=== PATIENT | female | born 1970 | race Caucasian/White ===

== ENCOUNTER 2022-01-17 10:13 | Observation (INO) | payer OTHER ==
[2022-01-17] MEDS ORDERED: SODIUM CHLORIDE 0.9% 1,000 ML IV STA (10:34)
[2022-01-17] MEDS ORDERED: HYDROmorphone 1 MG/ML 1 ML SYRINGE IVP STA ×2 (10:35→12:48)
--- NOTE | 2022-01-17 10:38 | ED ---
General Adult HPI - General Chief complaint: Headache Stated complaint: Headache Time Seen by Provider: 01/17/22 10:27 Source: patient, RN notes reviewed Mode of arrival: ambulatory Limitations: no limitations - History of Present Illness Initial comments: Patient is a pleasant 51-year-old female presenting to the emergency department with concerns with headache. Onset of symptoms was over 2 weeks ago. Patient diagnosed with shingles. Patient had shingles of the right side of her scalp. Patient was started on Valtrex. Patient was then hospitalized with suspicion of viral meningitis. Patient did have lumbar puncture attempt 4 without success. Patient was on IV medication, unclear what. Patient was at [facility]. Patient was discharged to week ago. Over the past couple of days patient has had increase in headache and neck discomfort, similar to when she first went into the hospital. Patient had fever 100.3 last night. Patient states lesions from shingles have significantly improved, near resolved - Related Data Home Medications Medication Instructions Recorded Confirmed Pregabalin 100 mg PO TID 01/17/22 01/17/22 Allergies Allergy/AdvReac Type Severity Reaction Status Date / Time No Known Allergies Allergy Verified 01/17/22 11:38 Review of Systems ROS Statement: Those systems with pertinent positive or pertinent negative responses have been documented in the HPI. ROS Other: All systems not noted in ROS Statement are negative. Constitutional: Reports: as per HPI Eyes: Denies: eye pain ENT: Denies: ear pain Respiratory: Denies: cough Cardiovascular: Denies: chest pain Endocrine: Denies: fatigue Gastrointestinal: Denies: abdominal pain Genitourinary: Denies: dysuria Musculoskeletal: Denies: back pain Skin: Reports: as per HPI Neurological: Reports: headache Past Medical History Additional Past Medical History / Comment(s): Lupus History of Any Multi-Drug Resistant Organisms: None Reported Past Surgical History: Hernia Repair Smoking Status: Former smoker Past Alcohol Use History: Occasional Past Drug Use History: None Reported General Exam Limitations: no limitations General appearance: alert Head exam: Present: atraumatic Eye exam: Present: normal appearance, PERRL, EOMI Neck exam: Present: meningismus Respiratory exam: Present: normal lung sounds bilaterally Cardiovascular Exam: Present: regular rate, normal rhythm GI/Abdominal exam: Present: soft. Absent: tenderness Extremities exam: Present: normal inspection Neurological exam: Present: alert, oriented X3, CN II-XII intact. Absent: motor sensory deficit Psychiatric exam: Present: normal affect, normal mood Skin exam: Present: normal color, other (No lesions visualized in suspected area) Course Vital Signs 01/17/22 01/17/22 01/17/22 10:18 12:18 13:24 Temperature 97.9 F Pulse Rate 110 H 77 86 Respiratory 18 18 18 Rate Blood Pressure 161/88 138/84 153/87 O2 Sat by Pulse 98 98 94 L Oximetry Procedures - Lumbar Puncture Consent Obtained: verbal consent Indication for Procedure: headache Patient Position: sitting upright/leaning forward Skin Prep: Povidone-Iodine 1% Local Anesthetic Used: Lidocaine 1% Spinal Needle Gauge: 20G Complications: unable to obtain CSF Patient Tolerated Procedure: no complications Medical Decision Making - Medical Decision Making Patient only mildly improved medications. Unable to obtain CSF. Patient refuses further attempt. Dr. mejia has been paged for hospital admission. Neurology and infectious disease will be placed on consult. - Lab Data Result diagrams: 01/17/22 10:47 01/17/22 10:47 Lab Results 01/17/22 01/17/22 01/17/22 Range/Units 10:47 10:47 10:47 WBC 6.2 (3.8-10.6) k/uL RBC 4.79 (3.80-5.40) m/uL Hgb 14.3 (11.4-16.0) gm/dL Hct 43.2 (34.0-46.0) % MCV 90.2 (80.0-100.0) fL MCH 29.9 (25.0-35.0) pg MCHC 33.1 (31.0-37.0) g/dL RDW 13.4 (11.5-15.5) % Plt Count 336 (150-450) k/uL MPV 8.7 Neutrophils % 65 % Lymphocytes % 26 % Monocytes % 5 % Eosinophils % 2 % Basophils % 0 % Neutrophils # 4.0 (1.3-7.7) k/uL Lymphocytes # 1.6 (1.0-4.8) k/uL Monocytes # 0.3 (0-1.0) k/uL Eosinophils # 0.1 (0-0.7) k/uL Basophils # 0.0 (0-0.2) k/uL PT 9.7 (9.0-12.0) sec INR 0.9 (<1.2) APTT 22.2 (22.0-30.0) sec Sodium 140 (137-145) mmol/L Potassium 4.1 (3.5-5.1) mmol/L Chloride 106 (98-107) mmol/L Carbon Dioxide 24 (22-30) mmol/L Anion Gap 10 mmol/L BUN 8 (7-17) mg/dL Creatinine 0.48 L (0.52-1.04) mg/dL Est GFR (CKD-EPI)AfAm >90 (>60 ml/min/1.73 sqM) Est GFR (CKD-EPI)NonAf >90 (>60 ml/min/1.73 sqM) Glucose 122 H (74-99) mg/dL Plasma Lactic Acid Lance (0.7-2.0) mmol/L Calcium 8.8 (8.4-10.2) mg/dL Total Bilirubin 0.6 (0.2-1.3) mg/dL AST 20 (14-36) U/L ALT 17 (4-34) U/L Alkaline Phosphatase 76 (38-126) U/L Total Protein 7.1 (6.3-8.2) g/dL Albumin 4.1 (3.5-5.0) g/dL 01/17/22 Range/Units 10:47 WBC (3.8-10.6) k/uL RBC (3.80-5.40) m/uL Hgb (11.4-16.0) gm/dL Hct (34.0-46.0) % MCV (80.0-100.0) fL MCH (25.0-35.0) pg MCHC (31.0-37.0) g/dL RDW (11.5-15.5) % Plt Count (150-450) k/uL MPV Neutrophils % % Lymphocytes % % Monocytes % % Eosinophils % % Basophils % % Neutrophils # (1.3-7.7) k/uL Lymphocytes # (1.0-4.8) k/uL Monocytes # (0-1.0) k/uL Eosinophils # (0-0.7) k/uL Basophils # (0-0.2) k/uL PT (9.0-12.0) sec INR (<1.2) APTT (22.0-30.0) sec Sodium (137-145) mmol/L Potassium (3.5-5.1) mmol/L Chloride (98-107) mmol/L Carbon Dioxide (22-30) mmol/L Anion Gap mmol/L BUN (7-17) mg/dL Creatinine (0.52-1.04) mg/dL Est GFR (CKD-EPI)AfAm (>60 ml/min/1.73 sqM) Est GFR (CKD-EPI)NonAf (>60 ml/min/1.73 sqM) Glucose (74-99) mg/dL Plasma Lactic Acid Lance 1.2 (0.7-2.0) mmol/L Calcium (8.4-10.2) mg/dL Total Bilirubin (0.2-1.3) mg/dL AST (14-36) U/L ALT (4-34) U/L Alkaline Phosphatase (38-126) U/L Total Protein (6.3-8.2) g/dL Albumin (3.5-5.0) g/dL - Radiology Data Radiology results: report reviewed (CT brain reveals no acute process), image reviewed (Chest x-ray shows no acute process) Disposition Clinical Impression: Headache Disposition: ADMITTED IP TO THIS HOSP Is patient prescribed a controlled substance at d/c from ED?: No Referrals: Nadine Verdugo DO [Primary Care Provider] - 1-2 days Time of Disposition: 14:14
[2022-01-17 11:20] LABS: Basophils % (A) 0 %; Eosinophils # (A) 0.1 k/uL (0-0.7); Eosinophils % (A) 2 %; HCT 43.2 % (34.0-46.0); HGB 14.3 gm/dL (11.4-16.0); Lymphocytes # (A) 1.6 k/uL (1.0-4.8); Lymphocytes % (A) 26 %; MCH 29.9 pg (25.0-35.0); MCHC 33.1 g/dL (31.0-37.0); MCV 90.2 fL (80.0-100.0); Mean Platelet Volume 8.7; Monocytes # (A) 0.3 k/uL (0-1.0); Monocytes % (A) 5 %; Neutrophils % (A) 65 %; Platelet Count 336 k/uL (150-450); RBC 4.79 m/uL (3.80-5.40); RDW 13.4 % (11.5-15.5); WBC 6.2 k/uL (3.8-10.6)
--- NOTE | 2022-01-17 11:25 | XR ---
EXAMINATION TYPE: XR chest 2V DATE OF EXAM: 01/17/2022 COMPARISON: None HISTORY: 51-year-old female with weakness TECHNIQUE: PA and lateral views FINDINGS: Heart normal size. Aorta and pulmonary vasculature within normal limits. No consolidation or pleural effusion. IMPRESSION: No acute cardiopulmonary process.
[2022-01-17 11:31] LABS: ALT 17 U/L (4-34); AST 20 U/L (14-36); African American GFR (CKD) >90 (>60 ml/min/1.73 sqM); Albumin 4.1 g/dL (3.5-5.0); Alkaline Phosphatase 76 U/L (38-126); Anion Gap 10 mmol/L; Blood Urea Nitrogen 8 mg/dL (7-17); Calcium 8.8 mg/dL (8.4-10.2); Carbon Dioxide 24 mmol/L (22-30); Chloride 106 mmol/L (98-107); Glucose 122 mg/dL (74-99); Non-African American GFR(CKD) >90 (>60 ml/min/1.73 sqM); Potassium 4.1 mmol/L (3.5-5.1); Sodium 140 mmol/L (137-145); Total Bilirubin 0.6 mg/dL (0.2-1.3); Total Protein 7.1 g/dL (6.3-8.2)
[2022-01-17 11:38] LABS: INR 0.9 (<1.2); Partial Thromboplastin Time 22.2 sec (22.0-30.0); Prothrombin Time 9.7 sec (9.0-12.0)
--- NOTE | 2022-01-17 11:42 | CT ---
EXAMINATION TYPE: CT brain wo con DATE OF EXAM: 01/17/2022 COMPARISON: None HISTORY: 51-year-old female Headache TECHNIQUE: Examination was done in axial plane without intravenous contrast. Coronal and sagittal r econstructions performed. CT DLP: 1143.4 mGycm Automated exposure control for dose reduction was used. FINDINGS: There are mild calvarial artifacts. Allowing for this limitation, there is no evidence of acute intr acranial hemorrhage, acute ischemic changes, mass, mass-effect, or extra-axial fluid collection. The re is no effacement of cerebral sulci or basal subarachnoid cisterns. There is no hydrocephalus. Th ere is no midline shift. Neves-white matter distinction is preserved. Paranasal sinuses and mastoid air cells are well pneumatized. Orbits and globes are intact. Slight un dulating nasal septum. IMPRESSION: No acute intracranial abnormality seen.
[2022-01-17] MEDS ORDERED: LORazepam 2 MG/ML INJ IV STA (13:15)
[2022-01-17] MEDS ORDERED: ACETAMINOPHEN TAB 325 MG TAB PO PRN (14:15)
[2022-01-17] MEDS ORDERED: HYDROmorphone 0.5 MG/0.5 ML SYRINGE IVP PRN (14:15)
[2022-01-17] MEDS ORDERED: NALOXONE 0.4 MG/ML 1 ML VIAL IV PRN (14:15)
[2022-01-17] MEDS: ACYCLOVIR SODIUM 800 MG in SODIUM CHLORIDE 0.9% 250 ML IVPB SCH ×2 (15:18→21:27)
[2022-01-17] MEDS ORDERED: LIDOCAINE 1% INJ 10MG/ML (20 ML MDV) SQ ONE (15:20)
[2022-01-17] MEDS: SODIUM CHLORIDE 0.9% 1,000 ML IV SCH ×2 (16:32→21:27)
[2022-01-17] MEDS: HYDROmorphone 1 MG/ML 1 ML SYRINGE IVP PRN (18:57)
[2022-01-17] MEDS ORDERED: BUTALB/APAP/CAFF 50-325-40MG TAB PO PRN (20:58)
[2022-01-17] MEDS: ONDANSETRON 4 MG/2 ML VIAL IVP PRN (21:27)
[2022-01-17] MEDS: PREGABALIN 100 MG CAP PO SCH (21:27)
[2022-01-18] MEDS: HYDROmorphone 1 MG/ML 1 ML SYRINGE IVP PRN ×5 (02:35→20:53)
[2022-01-18] MEDS: SODIUM CHLORIDE 0.9% 1,000 ML IV SCH ×3 (06:06→20:56)
[2022-01-18] MEDS: ACYCLOVIR SODIUM 800 MG in SODIUM CHLORIDE 0.9% 250 ML IVPB SCH (07:08)
[2022-01-18] MEDS: ONDANSETRON 4 MG/2 ML VIAL IVP PRN (07:22)
[2022-01-18] MEDS: PREGABALIN 100 MG CAP PO SCH ×2 (07:22→15:22)
[2022-01-18 08:58] LABS: Basophils # (A) 0.02 X 10*3/uL (0.00-0.10); Basophils % (A) 0.3 %; Eosinophils # (A) 0.11 X 10*3/uL (0.04-0.35); Eosinophils % (A) 1.7 %; HCT 37.2 % (37.2-46.3); HGB 12.1 g/dL (12.0-15.0); Immature Grans, Automated 0.2 %; Lymphocytes # (A) 2.32 X 10*3/uL (0.90-5.00); Lymphocytes % (A) 35.7 %; MCH 29.2 pg (27.0-32.0); MCHC 32.5 g/dL (32.0-37.0); MCV 89.6 fL (80.0-97.0); Mean Platelet Volume 11.5 fL (9.5-12.2); Monocytes # (A) 0.46 X 10*3/uL (0.20-1.00); Monocytes % (A) 7.1 %; NRBC Per 100 WBC 0 /100 WBCS (0.0-0.0); Neutrophils # (A) 3.57 X 10*3/uL (1.80-7.70); Platelet Count 318 X 10*3/uL (140-440); RBC 4.15 X 10*6/uL (4.10-5.20); RDW 13.8 % (11.5-14.5); WBC 6.49 X 10*3/uL (4.50-10.00)
[2022-01-18 09:12] LABS: ALT 11 U/L (8-44); AST 12 U/L (13-35); Albumin 3.6 g/dL (3.8-4.9); Albumin/Globulin Ratio 1.57 (1.60-3.17); Alkaline Phosphatase 61 U/L (41-126); Calcium 8.5 mg/dL (8.7-10.3); Carbon Dioxide 25.2 mmol/L (20.0-27.5); Chloride 107 mmol/L (96-109); Globulin 2.3 g/dL (1.6-3.3); Glucose 134 mg/dL (70-110); Non-African American GFR(CKD) 111.3 (60.0-200.0); Potassium 4.2 mmol/L (3.5-5.5); Sodium 141 mmol/L (135-145); Total Bilirubin <0.15 mg/dL (0.30-1.20); Total Protein 5.9 g/dL (6.2-8.2)
--- NOTE | 2022-01-18 15:48 | P.CONS ---
History of Present Illness - Reason for Consult Consult date: 01/18/22 - History of Present Illness Patient is a 51-year female recently admitted at [facility] with the patient has been diagnosed and treated for herpes zoster involving right temporal area especially side of her head patient mention she was on IV acyclovir for 4 days and apparently they tried to do LP x4 without any success patient is now presenting to the [facility] yesterday morning with concerns for persistent pain to the right temporal area patient initial symptoms started 2 weeks ago and has been complaining of throbbing pain to the area Heparin with the patient did have a rash before currently the patient do not have any rash patient describes intensity of the pain to be daisy ost 10 out of 10 and no radiation also complaining of some stiff neck denies having any photophobia, some nausea and vomiting no abdominal pain or any diarrhea patient on presentation to the hospital was afebrile and no fever have been recorded subsequently patient did have a normal white count with no left shift kidney function has been normal urine was abnormal patient did have blood cultures drawn which have been negative patient did have a CT of the brain no acute intracranial abnormality chest x-ray no acute cardiopulmonary process patient was started on acyclovir has been admitted to hospital infectious disease was consulted for further management Past Medical History Additional Past Medical History / Comment(s): Lupus History of Any Multi-Drug Resistant Organisms: None Reported Past Surgical History: Hernia Repair Past Anesthesia/Blood Transfusion Reactions: No Reported Reaction Past Psychological History: No Psychological Hx Reported Smoking Status: Former smoker Past Alcohol Use History: Occasional Past Drug Use History: None Reported Medications and Allergies Home Medications Medication Instructions Recorded Confirmed Type Pregabalin 100 mg PO TID 01/17/22 01/17/22 History Allergies Allergy/AdvReac Type Severity Reaction Status Date / Time No Known Allergies Allergy Verified 01/17/22 11:38 Physical Exam Vitals: Vital Signs Temp Pulse Pulse Resp BP BP Pulse Ox 01/18/22 07:00 98 F 80 18 136/79 97 01/18/22 03:05 98.0 F 78 16 121/77 97 01/17/22 20:50 98.3 F 76 17 150/91 97 01/17/22 19:50 63 18 01/17/22 19:48 98.2 F 63 18 155/89 96 01/17/22 15:26 87 18 132/81 96 01/17/22 13:24 86 18 153/87 94 L 01/17/22 12:18 77 18 138/84 98 01/17/22 10:18 97.9 F 110 H 18 161/88 98 Intake and Output 01/17/22 01/18/22 01/18/22 22:59 06:59 14:59 Intake Total 240 Balance 240 Intake: Oral 240 Other: Voiding Method Toilet # Voids 1 1 0 Weight 95.254 kg Results CBC & Chem 7: 01/18/22 05:58 01/18/22 05:58 Labs: Abnormal Lab Results - Last 24 Hours (Table) 01/17/22 01/18/22 Range/Units 10:47 05:58 Anion Gap 8.80 L (10.00-18.00) mmol/L Creatinine 0.48 L 0.5 L (0.52-1.04) mg/dL Glucose 122 H 134 H (74-99) mg/dL Calcium 8.5 L (8.7-10.3) mg/dL Total Bilirubin <0.15 L (0.30-1.20) mg/dL AST 12 L (13-35) U/L Total Protein 5.9 L (6.2-8.2) g/dL Albumin 3.6 L (3.8-4.9) g/dL Albumin/Globulin Ratio 1.57 L (1.60-3.17) g/dL Assessment and Plan Plan: 1patient presented to hospital with the pain to the right temporal area apparently the patient did have a rash into the specific location and was diagnosed with the shingles and has been treated with IV acyclovir and Valtrex patient currently do not have any rash to the area with the patient has been describing there is no redness or any drainage question of possible postherpetic neuralgia. 2patient with no fever elevated white count not behaving as encephalitis or meningitis. 3no need for acyclovir which will be discontinued. 4patient will benefit from Lyrica and more stronger pain medication to control her pain or possible pain management involvement. We will follow on clinical condition and cultures to further adjust medication if needed Thank you for this consultation will follow this patient along with you Time with Patient: Greater than 30
[2022-01-18] MEDS: methylPREDNISolone SOD SUCCI 40 MG/ML 1 ML VIAL IV SCH ×2 (17:02→23:02)
[2022-01-18] MEDS: GABAPENTIN 300 MG CAP PO SCH ×2 (17:02→20:52)
--- NOTE | 2022-01-18 17:19 | CT ---
EXAMINATION TYPE: CT cervical spine wo con CT DLP: 353 mGycm, Automated exposure control for dose reduction was used. DATE OF EXAM: 01/18/2022 5:00 PM COMPARISON: CT brain 01/17/2022. CLINICAL INDICATION:Female, 51 years old with history of cervical stiffness; TECHNIQUE: Axial CT images from the skull base to the inferior aspect of T2 we obtained without intra venous contrast. Coronal and sagittal reformatted images were also reviewed. FINDINGS: Fracture: None. 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 Osseous structures: Multilevel degenerative disc disease changes with endplate spurring and disc oste ophyte complex's. There is fusion of the C7-T1 lateral facets bilaterally. Vertebral alignment: Alignment within normal limits. Spinal canal/Neural Foramina: No evidence of significant spinal canal narrowing. No evidence for sign ificant neural foraminal stenosis. Neck soft tissues: Prevertebral soft tissues are within normal limits. Other: The airway is patent. The lung apices are clear. IMPRESSION: 1. No evidence of cervical spine fracture. 2. Mild multilevel degenerative disc disease.
--- NOTE | 2022-01-18 19:44 | P.CNNES ---
History of Present Illness Consult date: 01/18/22 Requesting physician: Warren Martinez Reason for Consult: Headache/encephalitis History of Present Illness: Patient is a 51-year-old female came to the hospital yesterday at 10:13 AM. Vital signs on arrival blood pressure 161/88, pulse rate 110, temperature 97.9. Patient has been afebrile since arrival to the hospital. Patient's computed tomography scan of head showed no acute process. Paranasal sinuses are clear. Chest x-ray showed no acute process. CT of the cervical spine showed no evidence of cervical spine fracture, mild multilevel degenerative disc disease. Patient's blood test shows normal WBC count, normal hemoglobin, no left shift. PT/PTT normal, CMP normal. Patient's blood cultures so far negative. Patient's home medications include Lyrica 100 mg 3 times a day. Past Medical History Additional Past Medical History / Comment(s): Lupus History of Any Multi-Drug Resistant Organisms: None Reported Past Surgical History: Hernia Repair Past Anesthesia/Blood Transfusion Reactions: No Reported Reaction Past Psychological History: No Psychological Hx Reported Smoking Status: Former smoker Past Alcohol Use History: Occasional Past Drug Use History: None Reported Medications and Allergies Home Medications Medication Instructions Recorded Confirmed Type Pregabalin 100 mg PO TID 01/17/22 01/17/22 History Allergies Allergy/AdvReac Type Severity Reaction Status Date / Time No Known Allergies Allergy Verified 01/17/22 11:38 Physical Examination - Vital Signs Vital Signs: Vital Signs Temp Pulse Resp BP Pulse Ox 01/18/22 13:55 98.2 F 93 18 134/80 94 L 01/18/22 13:54 98.2 F 93 18 134/80 94 L 01/18/22 07:00 98 F 80 18 136/79 97 01/18/22 03:05 98.0 F 78 16 121/77 97 01/17/22 20:50 98.3 F 76 17 150/91 97 01/17/22 19:50 63 18 01/17/22 19:48 98.2 F 63 18 155/89 96 Intake and Output 01/18/22 01/18/22 01/18/22 06:59 14:59 22:59 Intake Total 360 Balance 360 Intake: Oral 360 Other: # Voids 1 1 Results - Laboratory Findings CBC and BMP: 01/18/22 05:58 01/18/22 05:58 Abnormal Lab Findings: Abnormal Labs 01/17/22 01/18/22 10:47 05:58 Anion Gap 8.80 L Creatinine 0.48 L 0.5 L Glucose 122 H 134 H Calcium 8.5 L Total Bilirubin <0.15 L AST 12 L Total Protein 5.9 L Albumin 3.6 L Albumin/Globulin Ratio 1.57 L Assessment and Plan Assessment: * Status post shingles involving the right C2/C3 in right occipital nerve di stribution. * Persistent pain in right occipital nerve distribution, likely due to postherpetic neuralgia/occipital neuralgia. * Previous history of diabetes, in remission * History of lupus, in remission Plan: * Patient has developed possible postherpetic/right occipital neuralgia. Patient has failed Lyrica 100 mg 3 times a day, although she was not on maximal dose of Lyrica indicated for post herpetic neuralgia, which is 300 mg twice a day. * Patient has been switched to Neurontin 300 mg 3 times a day. Increase the dose as tolerated to 600 mg 3 times a day. * May consider adding Cymbalta. * Agree with holding off on antiviral medication, as she already has been treated for 13 days (3 days IV acyclovir and 10 days of oral Valtrex) * We will check hemoglobin A1c, B12, folate. * No indication for corticosteroids. * Neurologically clear for discharge. May follow up with neurologist locally as an outpatient. Thank you for the consult.
[2022-01-18] MEDS ORDERED: MELATONIN 5 MG TABLET PO SCH (21:00)
[2022-01-19] MEDS: HYDROmorphone 1 MG/ML 1 ML SYRINGE IVP PRN ×3 (00:38→08:21)
[2022-01-19] MEDS: SODIUM CHLORIDE 0.9% 1,000 ML IV SCH ×2 (04:39→13:43)
[2022-01-19] MEDS: GABAPENTIN 300 MG CAP PO SCH ×2 (08:25→16:46)
[2022-01-19] MEDS: methylPREDNISolone SOD SUCCI 40 MG/ML 1 ML VIAL IV SCH ×2 (08:29→16:46)
[2022-01-19 09:09] LABS: Basophils # (A) 0.01 X 10*3/uL (0.00-0.10); Basophils % (A) 0.2 %; Eosinophils # (A) 0 X 10*3/uL (0.04-0.35); Eosinophils % (A) 0 %; HGB 13.2 g/dL (12.0-15.0); Immature Grans, Automated 0.3 %; Lymphocytes # (A) 0.59 X 10*3/uL (0.90-5.00); Lymphocytes % (A) 9.1 %; MCH 28.8 pg (27.0-32.0); MCHC 32.2 g/dL (32.0-37.0); MCV 89.5 fL (80.0-97.0); Mean Platelet Volume 11.7 fL (9.5-12.2); Monocytes # (A) 0.07 X 10*3/uL (0.20-1.00); Monocytes % (A) 1.1 %; NRBC Per 100 WBC 0 /100 WBCS (0.0-0.0); Neutrophils # (A) 5.79 X 10*3/uL (1.80-7.70); Neutrophils % (A) 89.3 %; Platelet Count 322 X 10*3/uL (140-440); RBC 4.58 X 10*6/uL (4.10-5.20); RDW 13.5 % (11.5-14.5); WBC 6.48 X 10*3/uL (4.50-10.00)
[2022-01-19 09:46] LABS: C Reactive Protein <0.30 mg/dL (0.00-0.80)
[2022-01-19 10:23] LABS: ALT 16 U/L (8-44); AST 14 U/L (13-35); Albumin 4.2 g/dL (3.8-4.9); Albumin/Globulin Ratio 1.68 (1.60-3.17); Alkaline Phosphatase 69 U/L (41-126); Blood Urea Nitrogen 9.8 mg/dL (9.0-27.0); Calcium 9.3 mg/dL (8.7-10.3); Carbon Dioxide 23.5 mmol/L (20.0-27.5); Chloride 104 mmol/L (96-109); Globulin 2.5 g/dL (1.6-3.3); Glucose 196 mg/dL (70-110); Non-African American GFR(CKD) 111.3 (60.0-200.0); Potassium 4.4 mmol/L (3.5-5.5); Sodium 138 mmol/L (135-145); Total Bilirubin <0.15 mg/dL (0.30-1.20); Total Protein 6.7 g/dL (6.2-8.2)
[2022-01-19 13:02] VITALS: BP 166/89; PULSE 84; RESP 16; TEMP 98.7
--- NOTE | 2022-01-20 02:40 | PN ---
PROGRESS NOTE SUBJECTIVE: The patient came in. Seen by Infectious Disease, who did not recommend a spinal tap. She thinks she has herpes, neuralgia in the head. Says, nothing is helping for her headaches. We ordered a CAT scan today as she has tenderness in the right neck down to the right shoulder. Cervical CT showed no cervical spine fracture and only mild degenerative disk disease. Fusion of the C7-T1 facets. Wait for Neurology consultation. OBJECTIVE: VITAL SIGNS: Reviewed. CARDIOVASCULAR: S1, S2. LUNGS: Clear. PSYCH: Fair mood and affect. She appears anxious. LABS: Normal white count, normal hemoglobin. Blood cultures are negative. I started Neurontin 300 t.i.d. 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 We increased the dose of gabapentin, and we had Cymbalta. She was already treated with Valtrex for 13 days. Check hemoglobin A1c, B12, folic acid. No indication for steroids. She is cleared for discharge. PROGNOSIS: Guarded. MMODL / IJN: [id number] /
== END 2022-01-19 19:20 | disposition home or self-care (01) ==
LOC: EC 10:13 → 6NMEDSUR 14:15
PROVIDERS: ADMIT Family Medicine; ATTEND Family Medicine
DX: R51.9 Headache, unspecified (principal); B02.29 Other postherpetic nervous system involvement; M32.9 Systemic lupus erythematosus, unspecified; Z87.891 Personal history of nicotine dependence; Z79.899 Other long term (current) drug therapy
CPT/HCPCS: 96361 ×2; 96366; 96375 ×2; 96376 ×3; 96365; 99285; 36415; 80053 ×3; 82607; 82746; 83605; 85025 ×3; 85610; 85730; 86140; 87040; 83036; 71046; 72125; 70450; G0378 ×3; J2060; J2920 ×2; J0133 ×2; J2405 ×2; J2001; J1170 ×4